=== PATIENT | female | born 1940 | race Caucasian/White ===

== ENCOUNTER 2019-10-03 18:42 | Observation (INO) | payer MEDICARE, OTHER ==
[~2019-10-03] VITALS: Ht 154.9 cm; Wt 63.5 kg
[2019-10-03] VITALS (12 sets, daily range): BP systolic 99–191; BP diastolic 43–73
[2019-10-03] MEDS ORDERED: RT-ALBUTEROL/IPRATROPIUM 3 ML (DUONEB) VIAL ONE (18:44)
--- NOTE | 2019-10-03 18:58 | ED Cough/URI ---
General Stated Complaint: COPD EXASPERATION Source: patient, family Exam Limitations: no limitations History of Present Illness Date Seen by Provider: Oct 03, 2019 Time Seen by Provider: 18:55 Initial Comments to ER with reports of shortness of breath. This began about 3 days ago and has gotten progressively worse. History of COPD,does not wear oxygen at home. Was seen at [facility] urgent care today, found to be audibly wheezy, tachypneic with a respiratory rate of 30s, was referred to the emergency room.she is brought to the ER by [id number] and son with whom she is currently living. Reportedly, her about 3 weeks ago and she has been living with them since. Normal PCP is in [place], [place]. Timing/Duration: constant, getting worse Severity/Quality: moderate Associated Symptoms: cough, shortness of breath, other Allergies and Home Medications Allergies Coded Allergies: No Known Drug Allergies (Unverified , 10/03/19) Patient Home Medication List Home Medication List Reviewed: Yes Review of Systems Review of Systems Constitutional: see HPI; No chills, No fever EENTM: see HPI Respiratory: no symptoms reported, see HPI, short of breath, wheezing Cardiovascular: no symptoms reported Genitourinary: no symptoms reported Musculoskeletal: no symptoms reported Skin: no symptoms reported Psychiatric/Neurological: No Symptoms Reported Physical Exam Vital Signs - First Documented 10/03/19 18:43 Temp 35.0 Pulse 83 Resp 18 B/P (MAP) 201/93 (129) Pulse Ox 98 O2 Delivery Nasal Cannula O2 Flow Rate 2.00 Capillary Refill : Height: '" Weight: lbs. oz. kg; BMI Method: General Appearance: WD/WN, mild distress, other (chronically ill, slight distress, speaks in short phrases but oxygen saturation 95% room air.cool to the touch but plenty alert. Her initial oral temperature was 91on 3 attempts, axillary temperature was unable to be obtained, rectal temperature was 93. She is a bit forgetful, I asked her what her date of is and she replies "40, I think". When asked where she lives she states "I don't know".) Eyes: Bilateral Eye Normal Inspection, Bilateral Eye PERRL, Bilateral Eye EOMI Neck: non-tender, full range of motion Respiratory: no respiratory distress, no accessory muscle use, respiratory distress, wheezing Gastrointestinal: normal bowel sounds, non tender, soft Neurologic/Psychiatric: alert Skin: normal color, warm/dry, other (there is some very slight erythema bilateral lower extremities that is symmetric associated with thickened scaly skin without open wounds.) Progress/Results/Core Measures Suspected Sepsis SIRS Temperature: Pulse: Respiratory Rate: Laboratory Tests 10/03/19 19:03: White Blood Count 6.5 Blood Pressure / Mean: Laboratory Tests 10/03/19 19:03: Creatinine 0.80, Platelet Count 174, Total Bilirubin 0.3 Results/Orders Lab Results Laboratory Tests Test 10/03/19 19:03 Range/Units White Blood Count 6.5 4.3-11.0 10^3/uL Red Blood Count 4.40 4.35-5.85 10^6/uL Hemoglobin 13.6 11.5-16.0 G/DL Hematocrit 42 35-52 % Mean Corpuscular Volume 94 80-99 FL Mean Corpuscular Hemoglobin 31 25-34 PG Mean Corpuscular Hemoglobin Concent 33 32-36 G/DL Red Cell Distribution Width 15.6 H 10.0-14.5 % Platelet Count 174 130-400 10^3/uL Mean Platelet Volume 10.6 H 7.4-10.4 FL Neutrophils (%) (Auto) 51 42-75 % Lymphocytes (%) (Auto) 24 12-44 % Monocytes (%) (Auto) 12 0-12 % Eosinophils (%) (Auto) 12 H 0-10 % Basophils (%) (Auto) 1 0-10 % Neutrophils # (Auto) 3.3 1.8-7.8 X 10^3 Lymphocytes # (Auto) 1.6 1.0-4.0 X 10^3 Monocytes # (Auto) 0.8 0.0-1.0 X 10^3 Eosinophils # (Auto) 0.8 H 0.0-0.3 10^3/uL Basophils # (Auto) 0.0 0.0-0.1 10^3/uL Blood Gas Puncture Site LEFT RADIAL Blood Gas Patient Temperature 98.6 Arterial Blood pH 7.33 *L 7.37-7.43 Arterial Blood Partial Pressure CO2 54 H 35-45 MMHG Arterial Blood Partial Pressure O2 123 H 79-93 MMHG Arterial Blood HCO3 28 H 23-27 MMOL/L Arterial Blood Total CO2 29.3 21.0-31.0 MMOL/L Arterial Blood Oxygen Saturation 99 94-100 % Arterial Blood Base Excess 2.3 -2.5-2.5 MMOL/L Willam Test YES-POS Blood Gas Ventilator Setting NO Blood Gas Inspired Oxygen 5L Sodium Level 138 135-145 MMOL/L Potassium Level 4.7 3.6-5.0 MMOL/L Chloride Level 102 98-107 MMOL/L Carbon Dioxide Level 23 21-32 MMOL/L Anion Gap 13 5-14 MMOL/L Blood Urea Nitrogen 27 H 7-18 MG/DL Creatinine 0.80 0.60-1.30 MG/DL Estimat Glomerular Filtration Rate > 60 BUN/Creatinine Ratio 34 Glucose Level 72 70-105 MG/DL Calcium Level 9.2 8.5-10.1 MG/DL Corrected Calcium 9.4 8.5-10.1 MG/DL Total Bilirubin 0.3 0.1-1.0 MG/DL Aspartate Amino Transf (AST/SGOT) 29 5-34 U/L Alanine Aminotransferase (ALT/SGPT) 20 0-55 U/L Alkaline Phosphatase 94 40-136 U/L Lactate Dehydrogenase 252 H 125-220 U/L C-Reactive Protein High Sensitivity 0.99 H 0.00-0.50 MG/DL B-Type Natriuretic Peptide 122.2 H <100.0 PG/ML Total Protein 8.4 H 6.4-8.2 GM/DL Albumin 3.7 3.2-4.5 GM/DL Procalcitonin 0.03 <0.10 NG/ML Thyroid Stimulating Hormone (TSH) 5.68 H 0.35-4.94 UIU/ML Free Thyroxine 1.02 0.70-1.48 NG/DL My Orders Orders - BASIA CHI DENTAL AMALGAM PROCESSOR Cbc With Automated Diff (10/03/19 18:52) Comprehensive Metabolic Panel (10/03/19 18:52) BNP (10/03/19 18:52) Arterial Blood Gas (10/03/19 18:52) Chest 1 View, Ap/Pa Only (10/03/19 18:52) Ed Iv/Invasive Line Start (10/03/19 18:52) Thyroid Stimulating Hormone (10/03/19 19:08) Free T4 (Free Thyroxine) (10/03/19 19:08) Albuterol/Ipra Inhalation Soln (Duoneb I (10/03/19 19:15) Albuterol Pre-Mix Nebs (Rt) (Proventil (10/03/19 19:15) Svn Small Volume Nebulizer (10/03/19 19:12) Svn Small Volume Nebulizer (10/03/19 19:12) Methylprednisolone Sod Succ (Solu-Medrol (10/03/19 19:15) Hs C Reactive Protein (10/03/19 19:15) Procalcitonin (Pct) (10/03/19 19:15) LDH (10/03/19 19:15) Medications Given in ED Current Medications Medications Dose Ordered Sig/Valdemar Route Start Time Stop Time Status Last Admin Dose Admin Albuterol Sulfate 5 mg ONCE ONCE INH 10/03/19 19:15 10/03/19 19:16 DC 10/03/19 19:21 5 MG Albuterol/ Ipratropium 3 ml ONCE ONCE INH 10/03/19 19:15 10/03/19 19:16 DC 10/03/19 19:00 3 ML Methylprednisolone Sodium Succinate 125 mg ONCE ONCE IVP 10/03/19 19:15 10/03/19 19:16 DC 10/03/19 19:21 125 MG Vital Signs/I&O 10/03/19 10/03/19 10/03/19 10/03/19 18:43 19:00 19:15 19:21 Temp 35.0 Pulse 83 70 72 Resp 18 26 24 B/P (MAP) 201/93 (129) 191/73 (112) 177/58 (97) Pulse Ox 98 98 98 99 O2 Delivery Nasal Cannula Nasal Cannula Nasal Cannula Nasal Cannula O2 Flow Rate 2.00 2.00 2.00 2.00 Capillary Refill : Diagnostic Imaging Diagonstic Imaging: Xray Comments NAME: JACKI MARIO Vashti MED REC#: [id number] PT STATUS: REG ER : 1940 PHYSICIAN: BASIA CHI APRN ADMIT DATE: 10/03/19/ER Signed Date of Exam:10/03/19 CHEST 1 VIEW, AP/PA ONLY EXAMINATION: Chest 1 view HISTORY: Chronic cough COMPARISON: None available. FINDINGS: The lungs are clear without edema or pneumonia. No pleural effusion or pneumothorax. Heart size is normal. IMPRESSION: 1. Clear lungs. Dictated by: Dictated on workstation # [id number] Dict: 10/03/191920 Trans: 10/03/191921 [facility] [phone] Interpreted by: ALICE THOMASON MD Electronically signed by: ALICE THOMASON MD 10/03/191921 Departure Communication (Admissions) Time/Spoke to Admitting Phy: 20:04 0-feeling a bit better after DuoNeb and 2 albuterol treatments, still pretty wheezing, work of breathing is improved but overall still I beyond what I would imagine normal is for her.spoke with Dr. Whaley, we'll admit COPD exacerbation. We will not swab for COVID-19 because she does not have a fever and shedoes have an alternate more likely diagnosis which is an exacerbation of her COPD. I had a lengthy discussion with her daughter Senait Vargas phone number [phone] who is a nurse as well as her uuhukgmx-[id number]-bwy LUCIAN phone number [phone]. States she has a history of chronic kidney disease, type 2 diabetes but not on any medications for this, suspected COPD but not diagnosed. 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 She had a bad history of going through her albuterol inhaler excessively, she would run through a 90 day supply in just a few days and would then use her 's supply. 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 Primary care doctor is Dr. Chacko from [place].her zykpcugi-qb-run Chris confirmed that she intends to take the patient home with her tomorrow on discharge. Patient's daughter states that she has a small bedsore on her bottom because she sleeps in a chair and refuses to sleep in bed, she has some swelling in both lower extremities because she sleeps in the chair and refused to put her feet up. Impression Primary Impression: COPD exacerbation Additional Impression: Hypothermia Disposition: ADMITTED INPATIENT Condition: Stable Admissions Decision to Admit Reason: Admit from ER (General) Decision to Admit/Date: Oct 03, 2019 Time/Decision to Admit Time: 19:15 BASIA CHI DENTAL AMALGAM PROCESSOR Oct 03, 2019 18:58
[2019-10-03 19:13] LABS: BASOPHILS % (AUTO) 1 % (0-10); EOSINOPHILS # (AUTO) 0.8 10^3/uL (0.0-0.3); EOSINOPHILS % (AUTO) 12 % (0-10); HEMATOCRIT 42 % (35-52); HEMOGLOBIN 13.6 G/DL (11.5-16.0); LYMPHOCYTES # (AUTO) 1.6 X 10^3 (1.0-4.0); LYMPHOCYTES % (AUTO) 24 % (12-44); MEAN CORPUSCULAR HEMOGLOBIN 31 PG (25-34); MEAN CORPUSCULAR HGB CONC 33 G/DL (32-36); MEAN CORPUSCULAR VOLUME 94 FL (80-99); MEAN PLATELET VOLUME 10.6 FL (7.4-10.4); MONOCYTES # (AUTO) 0.8 X 10^3 (0.0-1.0); MONOCYTES % (AUTO) 12 % (0-12); NEUTROPHILS # (AUTO) 3.3 X 10^3 (1.8-7.8); NEUTROPHILS % (AUTO) 51 % (42-75); PLATELET COUNT 174 10^3/uL (130-400); RED CELL DISTRIBUTION WIDTH 15.6 % (10.0-14.5); WHITE BLOOD COUNT 6.5 10^3/uL (4.3-11.0)
[2019-10-03 19:14] LABS: ABG BASE EXCESS 2.3 MMOL/L (-2.5-2.5); ABG OXYGEN SATURATION 99 % (94-100); ABG PCO2 54 MMHG (35-45); ABG PO2 123 MMHG (79-93); ABG TCO2 29.3 MMOL/L (21.0-31.0)
[2019-10-03] MEDS ORDERED: RT-ALBUTEROL SULF 2.5 MG/3 ML PRE-MIX VIAL INH ONE (19:15)
[2019-10-03] MEDS ORDERED: methylPREDNISolone 125 MG (Solu-MEDROL) VIAL IVP ONE (19:15)
[2019-10-03] MEDS ORDERED: RT-ALBUTEROL/IPRATROPIUM 3 ML (DUONEB) VIAL INH ONE (19:15)
[2019-10-03 19:18] LABS: ABG PH 7.33 (7.37-7.43); ALLENS TEST YES-POS; INSPIRED O2 5L; PATIENT TEMP 98.6; VENTILATOR NO
--- NOTE | 2019-10-03 19:23 | Diagnostic Imaging Report ---
EXAMINATION: Chest 1 view HISTORY: Chronic cough COMPARISON: None available. FINDINGS: The lungs are clear without edema or pneumonia. No pleural effusion or pneumothorax. Heart size is normal. IMPRESSION: 1. Clear lungs. Dictated by: Dictated on workstation # [id number]
[2019-10-03 19:37] LABS: ALANINE AMINOTRANSFERASE 20 U/L (0-55); ALBUMIN 3.7 GM/DL (3.2-4.5); ALKALINE PHOSPHATASE 94 U/L (40-136); BILIRUBIN,TOTAL 0.3 MG/DL (0.1-1.0); BUN/CREATININE RATIO 34; CALCIUM 9.2 MG/DL (8.5-10.1); CARBON DIOXIDE 23 MMOL/L (21-32); CHLORIDE 102 MMOL/L (98-107); GFR ESTIMATED > 60; GLUCOSE 72 MG/DL (70-105); POTASSIUM 4.7 MMOL/L (3.6-5.0); SODIUM 138 MMOL/L (135-145); TOTAL PROTEIN 8.4 GM/DL (6.4-8.2)
[2019-10-03 19:59] LABS: FREE T4 (FREE THYROXINE) 1.02 NG/DL (0.70-1.48)
--- NOTE | 2019-10-03 20:13 | NUR ---
floor rn unable to take report at this time.
[2019-10-03] MEDS ORDERED: AZITHROMYCIN INJECTION 500 MG in NS (IVPB) 250 ML IV SCH (21:15)
[2019-10-03] MEDS ORDERED: cefTRIAXone FOR IV USE 1,000 MG in WATER (STERILE) FOR INJECTION 10 ML IV SCH (21:15)
[2019-10-03] MEDS ORDERED: ENOXAPARIN 40 MG/0.4 ML (LOVENOX) SYR SC SCH (21:45)
[2019-10-03] MEDS ORDERED: ONDANSETRON 4 MG/2 ML (SDV) Z0FRAN IV PRN (21:45)
[2019-10-03] MEDS ORDERED: amLODIPine 5 MG (NORVASC) TAB PO PRN (21:45)
[2019-10-03] MEDS: RT-ALBUTEROL/IPRATROPIUM 3 ML (DUONEB) VIAL INH SCH (22:32)
--- NOTE | 2019-10-03 22:45 | NUR ---
PT ARRIVED ON FLOOR AT THIS TIME, ACCOMPANIED BY STAFF. PT PERSONAL BELONGINGS BROUGHT IN ROOM, INCLUDING CANE AND CLOTHING. PT ASSESSED AT THIS TIME, AGREE WITH PREVIOUS ASSESSMENT. PT INTRODUCED TO SURROUNDINGS, CALL LIGHT WITHIN REACH, WILL CONTINUE TO MONITOR
[2019-10-04 00:47] VITALS: BP 150/82
[2019-10-04] MEDS: RT-ALBUTEROL/IPRATROPIUM 3 ML (DUONEB) VIAL INH SCH ×3 (02:20→10:27)
[2019-10-04 04:00] VITALS: BP 154/76
[2019-10-04] MEDS: methylPREDNISolone 40 MG/ML (Solu-MEDROL) VIAL IV SCH ×2 (04:40→11:53)
[2019-10-04 05:13] VITALS: BP 154/76
[2019-10-04 05:44] LABS: BASOPHILS % (AUTO) 0 % (0-10); EOSINOPHILS % (AUTO) 0 % (0-10); HEMATOCRIT 36 % (35-52); HEMOGLOBIN 11.6 G/DL (11.5-16.0); LYMPHOCYTES # (AUTO) 0.4 X 10^3 (1.0-4.0); LYMPHOCYTES % (AUTO) 7 % (12-44); MEAN CORPUSCULAR HEMOGLOBIN 30 PG (25-34); MEAN CORPUSCULAR HGB CONC 32 G/DL (32-36); MEAN CORPUSCULAR VOLUME 95 FL (80-99); MEAN PLATELET VOLUME 11.1 FL (7.4-10.4); MONOCYTES % (AUTO) 0 % (0-12); NEUTROPHILS # (AUTO) 5.4 X 10^3 (1.8-7.8); NEUTROPHILS % (AUTO) 92 % (42-75); PLATELET COUNT 165 10^3/uL (130-400); RED CELL DISTRIBUTION WIDTH 15.5 % (10.0-14.5); WHITE BLOOD COUNT 5.8 10^3/uL (4.3-11.0)
[2019-10-04 06:03] LABS: ALBUMIN 3.2 GM/DL (3.2-4.5)
[2019-10-04 06:06] LABS: TOTAL PROTEIN 7.3 GM/DL (6.4-8.2)
[2019-10-04 06:08] LABS: BILIRUBIN,TOTAL 0.1 MG/DL (0.1-1.0)
[2019-10-04 08:00] VITALS: BP_SYST 117; BP_SYST 168; BP_DIAS 56; BP_DIAS 89
[2019-10-04] MEDS ORDERED: hydrALAZINE (APESOLINE) 20 MG/ML VIAL IV PRN (08:15)
[2019-10-04] MEDS ORDERED: hydrALAZINE (APRESOLINE) 25 MG TAB PO PRN (08:15)
[2019-10-04] MEDS ORDERED: PRED10TA22 PO (10:34)
[2019-10-04] MEDS ORDERED: IPRA3AMP31 IH (10:34)
[2019-10-04] MEDS: inSUlin ASPART (NovoLOG) 1 UNIT/0.01 ML (CHARGE PER UNIT) SC SCH ×2 (11:06→11:08)
--- NOTE | 2019-10-04 11:30 | NUR ---
RESPIRATORY THERAPY WAS NOTIFIED OF HOME O2 STUDY THAT WAS ORDERED. R.TEleazar WAS CONCERNED THAT THE PATIENT HAD DEMENTIA AND WOULDN'T BE ABLE TO WALK. THIS RN REASSURED HIM THAT SHE IS ABLE TO COMPREHEND INFORMATION AND FOLLOW DIRECTIONS AND IS ABLE TO WALK. SHE USES A CANE AT HOME. THIS RN ASKED ROMARIO SANDOVAL TO HELP R.TEleazar WHEN HE WALKED THE PATIENT. Sarath RAINES TOLD LORI THAT HE DIDN'T NEED TO WALK THE PATIENT BECAUSE SHE ALREADY QUALIFIED FOR OXYGEN. LORI RELAYED THIS INFORMATION TO THIS RN. THIS RN WENT IN THE PATIENT'S ROOM TO CHECK THE OXYGEN LEVEL THAT RESPIRATORY THERAPY PUT THE PATIENT ON. THE PATIENT WAS NOT WEARING OXYGEN. THE WALL OXYGEN WAS NOT TURNED ON AND THERE WAS NO NASAL CANULA IN THE ROOM. PROJECT PRODUCTION ENGINEER RN FELICIA REPORTED THAT THE PATIENT WAS ON ROOM AIR, AND THE PATIENT HAS BEEN ON ROOM AIR SINCE THE BEGINNING OF THIS RN'S SHIFT. PATIENT'S O2 SAT HAS BEEN RANGING FROM 91-94% WHILE LAYING IN BED. PATIENT WALKED IN THE ELLIS WITH ROMARIO SANDOVAL AND THIS RN. O2 SAT CLIMBED FROM 90% TO 94%. THE PATIENT WAS CONSISTENTLY AT 94% OA SAT WHILE AMBULATING. THIS RN CALLED THE RESPIRATORY THERAPIST YANNA TO REPORT THE THE RESULTS OF OUR AMBULATORY OXYGEN STUDY. Sarath RAINES CAME TO THE FLOOR TO WITNESS THE END OF THE PATIENT'S HOME O2 AMBULATORY STUDY.
--- NOTE | 2019-10-04 11:49 | NUR ---
PT SATS CLIMBED WITH EXERCISE, SHE WALKED APPROXIMATLY 300 FT WITHOUT SUPPLEMENTAL OXYGEN AND WITH A HR OF 140 AND O2 SATS OF 94%. AT REST IN BED SATS ARE 87% WITH A HR OF 101. Addendum: 10/04/19 at 1150 by SARAH BUSTAMANTE RT Amended: Links added.
[2019-10-04 12:00] VITALS: BP 124/56
[2019-10-04 12:35] VITALS: BP 124/56
== END 2019-10-04 12:35 | disposition home or self-care (01) ==
LOC: EDUNIT# 18:49 → ER 19:01 → ICU 20:39 → 4TH 23:10
PROVIDERS: ADMIT Internal Medicine; ATTEND Internal Medicine
DX: J44.1 Chronic obstructive pulmonary disease with (acute) exacerbation (principal); T68.XXXA Hypothermia, initial encounter; E11.22 Type 2 diabetes mellitus with diabetic chronic kidney disease; N18.9 Chronic kidney disease, unspecified
CPT/HCPCS: 36415; 71045; 80053; 82805; 82962; 83615; 83880; 84145; 84439; 84443; 85025; 86141; 94640; 94760; 94761

== ENCOUNTER 2019-10-31 10:44 | Emergency (ER) | payer MEDICARE ==
[~2019-10-31] VITALS: Ht 152 cm; Wt 45.3 kg
[~2019-10-31 10:44] MED LIST: IPRA3AMP31 IH; PRED10TA22 PO
--- OUTSIDE RECORDS SUMMARY | 2019-10-31 10:51 | XMS REPORT | Continuity of Care Document ---
Author Organization Unknown Address Unknown Phone Unavailable Allergies Active Description Code Type Severity Reaction Onset Reported/Identified Relationship to Patient Clinical Status Yes No Known Drug Allergies [id number] Drug Allergy Unknown N/A 10/03/2019 Medications There is no data. Problems Date Dx Coded Attending Type Code Diagnosis Diagnosed By 10/04/2019 ALBERT GOMES MD, Ot E11. 22 TYPE 2 DIABETES MELLITUS W DIABETIC PROCESSING MGR 10/04/2019 ALBERT GOMES MD, Ot J44. 1 CHRONIC OBSTRUCTIVE PULMONARY DISEASE W 10/04/2019 ALBERT GOMES MD Ot N18. 9 CHRONIC KIDNEY DISEASE, UNSPECIFIED 10/04/2019 ALBERT GOMES MD Ot T68.XXXA HYPOTHERMIA, INITIAL ENCOUNTER 10/21/2019 ALBERT GOMES MD Ot E11. 22 TYPE 2 DIABETES MELLITUS W DIABETIC PROCESSING MGR 10/21/2019 ALBERT GOMES MD Ot J44. 1 CHRONIC OBSTRUCTIVE PULMONARY DISEASE W 10/21/2019 ALBERT GOMES MD Ot N18. 9 CHRONIC KIDNEY DISEASE, UNSPECIFIED 10/21/2019 ALBERT GOMES MD Ot T68.XXXA HYPOTHERMIA, INITIAL ENCOUNTER 10/21/2019 ALBERT GOMES MD Ot E11. 22 TYPE 2 DIABETES MELLITUS W DIABETIC PROCESSING MGR 10/21/2019 ALBERT GOMES MD Ot J44. 1 CHRONIC OBSTRUCTIVE PULMONARY DISEASE W 10/21/2019 ALBERT GOMES MD Ot N18. 9 CHRONIC KIDNEY DISEASE, UNSPECIFIED 10/21/2019 ALBERT GOMES MD Ot T68.XXXA HYPOTHERMIA, INITIAL ENCOUNTER 10/21/2019 ALBERT GOMES MD Ot E11. 22 TYPE 2 DIABETES MELLITUS W DIABETIC PROCESSING MGR 10/21/2019 ALBERT GOMES MD Ot J44. 1 CHRONIC OBSTRUCTIVE PULMONARY DISEASE W 10/21/2019 ALBERT GOMES MD Ot N18. 9 CHRONIC KIDNEY DISEASE, UNSPECIFIED 10/21/2019 ALBERT GOMES MD Ot T68.XXXA HYPOTHERMIA, INITIAL ENCOUNTER Procedures There is no data. Results Test Result Range Complete blood count (CBC) with automate d white blood cell (WBC) differential - 10/03/19 19:03 Blood leukocytes automated count (number/volume) 6.5 10*3/uL 4.3-11.0 Blood erythrocytes automated count (number/volume) 4.40 10*6/uL 4.35-5.85 Venous blood hemoglobin measurement (mass/volume) 13.6 g/dL 11.5-16.0 Blood hematocrit (volume fraction) 42 % 35-52 Automated erythrocyte mean corpuscular volume 94 [ foz_us] 80-99 Automated erythrocyte mean corpuscular h emoglobin (mass per erythrocyte) 31 pg 25-34 Automated erythrocyte mean corpuscular h emoglobin concentration measurement (mass/volume) 33 g/dL 32-36 Automated erythrocyte distribution width ratio 15. 6 % 10.0- 14.5 Automated blood platelet count (count/volume) 174 10*3/uL 130-400 Automated blood platelet mean volume measurement 10.6 [foz_us] 7.4-10.4 Automated blood neutrophils/100 leukocytes 51 % 42-75 Automated blood lymphocytes/100 leukocytes 24 % 12-44 Blood monocytes/100 leukocytes 12 % 0-12 Automated blood eosinophils/100 leukocytes 12 % 0-10 Automated blood basophils/100 leukocytes 1 % 0-10 Blood neutrophils automated count (number/volume) 3.3 10*3 1.8-7.8 Blood lymphocytes automated count (number/volume) 1.6 10*3 1.0-4.0 Blood monocytes automated count (number/volume) 0. 8 10*3 0.0-1.0 Automated eosinophil count 0.8 10*3/uL 0 .0-0.3 Automated blood basophil count (count/volume) 0.0 10*3/uL 0.0-0.1 Arterial blood gas measurement - 0 19:03 Blood pCO2 54 mm[Hg] 35-45 Blood pO2 123 mm[Hg] 79-93 Arterial blood bicarbonate measurement (moles/volume) 28 mmol/L 23-27 Arterial blood base excess by calculation 2.3 mmol /L -2.5-2.5 Arterial blood oxygen saturation measurement 99 % 94-100 * Inhaled oxygen flow rate 5L NRG Arterial blood pH measurement with patient temperature correction 7.33 7.37-7.43 Arterial blood carbon dioxide, total measurement (mole s/volume) 29.3 mmol/L 21.0-31.0 Body site LEFT RADIAL NRG Assessment of wrist artery patency prior to arterial p uncture YES-POS NRG Setting of ventilation mode NO NR G Measurement of body temperature 98.6 NRG Serum ragweed IgE antibody assay - 10/02 19:03 Serum ragweed IgE antibody assay 252 U/L 125-220 PROCALCITONIN (PCT) - 10/03/19 19:03 PROCALCITONIN (PCT) 0.03 ng/mL <0.10 Comprehensive metabolic panel - 10/03/19 19:03 Serum or plasma sodium measurement (moles/volume) 138 mmol/L 135-145 Serum or plasma potassium measurement (moles/volume) 4.7 mmol/L 3.6-5.0 Serum or plasma chloride measurement (moles/volume) 102 mmol/L 98-107 Carbon dioxide 23 mmol/L 21-32 Serum or plasma anion gap determination (moles/volume) 13 mmol/L 5-14 Serum or plasma urea nitrogen measurement (mass/volume ) 27 mg/dL 7-18 Serum or plasma creatinine measurement (mass/volume) 0.80 mg/dL 0.60-1.30 Serum or plasma urea nitrogen/creatinine mass ratio 34 NRG Serum or plasma creatinine measurement w ith calculation of estimated glomerular filtration rate > NRG Serum or plasma glucose measurement (mass/volume) 72 mg/dL 70-105 Serum or plasma calcium measurement (mass/volume) 9.2 mg/dL 8.5-10.1 Serum or plasma total bilirubin measurement (mass/volu me) 0.3 mg/dL 0.1-1.0 Serum or plasma alkaline phosphatase francisco j surement (enzymatic activity/volume) 94 U/L 40-136 Serum or plasma aspartate aminotransfera se measurement (enzymatic activity/volume) 29 U/L 5-34 Serum or plasma alanine aminotransferase measurement (enzymatic activity/volume) 20 U/L 0-55 Serum or plasma protein measurement (mass/volume) 8.4 g/dL 6.4-8.2 Serum or plasma albumin measurement (mass/volume) 3.7 g/dL 3.2-4.5 CALCIUM CORRECTED 9.4 mg/dL 8.5-10.1 Serum or plasma lithium measurement (mol es/volume) - 10/03/19 19:03 BNP PT 122.2 pg/mL <100.0 THYROID STIMULATING HORMONE - 10/03/19 1 9:03 THYROID STIMULATING HORMONE 5.68 u[iU]/mL 0.35-4.94 Serum or plasma thyroxine (T4) free chanelle urement (mass/volume) - 10/03/19 19:03 Serum or plasma thyroxine (T4) free measurement (mass/ volume) 1.02 ng/dL 0.70-1.48 Serum or plasma C reactive protein measu rement (mass/volume) - 10/03/19 19:03 Serum or plasma C reactive protein measurement (mass/v olume) 0.99 mg/dL 0.00-0.50 Complete blood count (CBC) with automate d white blood cell (WBC) differential - 10/04/19 04:37 Blood leukocytes automated count (number/volume) 5.8 10*3/uL 4.3-11.0 Blood erythrocytes automated count (number/volume) 3.82 10*6/uL 4.35-5.85 Venous blood hemoglobin measurement (mass/volume) 11.6 g/dL 11.5-16.0 Blood hematocrit (volume fraction) 36 % 35-52 Automated erythrocyte mean corpuscular volume 95 [ foz_us] 80-99 Automated erythrocyte mean corpuscular h emoglobin (mass per erythrocyte) 30 pg 25-34 Automated erythrocyte mean corpuscular h emoglobin concentration measurement (mass/volume) 32 g/dL 32-36 Automated erythrocyte distribution width ratio 15. 5 % 10.0- 14.5 Automated blood platelet count (count/volume) 165 10*3/uL 130-400 Automated blood platelet mean volume measurement 11.1 [foz_us] 7.4-10.4 Automated blood neutrophils/100 leukocytes 92 % 42-75 Automated blood lymphocytes/100 leukocytes 7 % 12-44 Blood monocytes/100 leukocytes 0 % 0-12 Automated blood eosinophils/100 leukocytes 0 % 0-10 Automated blood basophils/100 leukocytes 0 % 0-10 Blood neutrophils automated count (number/volume) 5.4 10*3 1.8-7.8 Blood lymphocytes automated count (number/volume) 0.4 10*3 1.0-4.0 Blood monocytes automated count (number/volume) 0. 0 10*3 0.0-1.0 Automated eosinophil count 0.0 10*3/uL 0 .0-0.3 Automated blood basophil count (count/volume) 0.0 10*3/uL 0.0-0.1 Comprehensive metabolic panel - 10/04/19 04:37 Serum or plasma sodium measurement (moles/volume) 140 mmol/L 135-145 Serum or plasma potassium measurement (moles/volume) 4.0 mmol/L 3.6-5.0 Serum or plasma chloride measurement (moles/volume) 105 mmol/L 98-107 Carbon dioxide 18 mmol/L 21-32 Serum or plasma anion gap determination (moles/volume) 17 mmol/L 5-14 Serum or plasma urea nitrogen measurement (mass/volume ) 32 mg/dL 7-18 Serum or plasma creatinine measurement (mass/volume) 1.00 mg/dL 0.60-1.30 Serum or plasma urea nitrogen/creatinine mass ratio 32 NRG Serum or plasma creatinine measurement w ith calculation of estimated glomerular filtration rate 53 NRG Serum or plasma glucose measurement (mass/volume) 159 mg/dL 70-105 Serum or plasma calcium measurement (mass/volume) 9.0 mg/dL 8.5-10.1 Serum or plasma total bilirubin measurement (mass/volu me) 0.1 mg/dL 0.1-1.0 Serum or plasma alkaline phosphatase francisco j surement (enzymatic activity/volume) 81 U/L 40-136 Serum or plasma aspartate aminotransfera se measurement (enzymatic activity/volume) 22 U/L 5-34 Serum or plasma alanine aminotransferase measurement (enzymatic activity/volume) 18 U/L 0-55 Serum or plasma protein measurement (mass/volume) 7.3 g/dL 6.4-8.2 Serum or plasma albumin measurement (mass/volume) 3.2 g/dL 3.2-4.5 CALCIUM CORRECTED 9.6 mg/dL 8.5-10.1 Capillary blood glucose measurement by g lucometer (mass/volume) - 10/04/19 11:00 Capillary blood glucose measurement by glucometer (mas s/volume) 178 mg/dL 70-110 Encounters ACCT No. Visit Date/Time Discharge Status Pt. Type Provider Facility Loc./Unit Complaint [id number] 10/03/2019 18:20:00 10/03/2019 23:59: 59 CLS Outpatient [facility] [id number] 10/03/2019 21:15:00 020 12:35:00 DIS Inpatient MIREYA DOBSON, ALBERT Gates [facility] COPD EXACERBATION,[facility]
--- NOTE | 2019-10-31 11:03 | ED General ---
General Stated Complaint: BURNING WHEN URINATION Source of Information: Patient Exam Limitations: No Limitations History of Present Illness Date Seen by Provider: October 31, 2019 Time Seen by Provider: 11:01 Initial Comments To ER with reports of burning on urination for a couple days. No nausea no vomiting no fevers. Questionable chills. Also reports low back pain. Timing/Duration: 2-3 Days Severity: Moderate Associated Systoms: No Cough; Fever/Chills; No Nausea/Vomiting Allergies and Home Medications Allergies Coded Allergies: No Known Drug Allergies (Unverified , 10/03/19) Home Medications Ipratropium/Albuterol Sulfate 3 Ml Ampul.neb, 3 ML IH Q6H PRN for SHORTNESS OF BREATH Prescribed by: ALBERT GOMES on 10/04/19 1034 Prednisone 10 Mg Tab.ds.pk, 10 MG PO DAILY Take 6 tabs(60mg)daily,decrease by 1 tab(10mg)every other day. Prescribed by: ALBERT GOMES on 10/04/19 1034 Temazepam 7.5 Mg Capsule, 7.5 MG PO HS PRN for INSOMNIA Prescribed by: BASIA CHI on 10/31/19 1204 Patient Home Medication List Home Medication List Reviewed: Yes Review of Systems Review of Systems Constitutional: see HPI, chills; No fever EENTM: see HPI Respiratory: no symptoms reported Cardiovascular: no symptoms reported Genitourinary: see HPI, dysuria Musculoskeletal: no symptoms reported Skin: no symptoms reported Psychiatric/Neurological: No Symptoms Reported Hematologic/Lymphatic: No Symptoms Reported Past Yluohcn-Kjfqoc-Gzivqf Hx Patient Social History Type Used: Cigarettes Recent Foreign Travel: No Contact w/Someone Who Travel: No Recent Hopitalizations: No (pt poor historian) Immunizations Up To Date Tetanus Booster (TDap): Unknown Seasonal Allergies Seasonal Allergies: No Past Medical History Surgeries: Yes Orthopedic Respiratory: Yes COPD Cardiac: No Neurological: No Genitourinary: No Gastrointestinal: No Musculoskeletal: No Endocrine: No HEENT: No Cancer: No Psychosocial: No Integumentary: No Blood Disorders: No Physical Exam Vital Signs Vital Signs - First Documented 10/31/19 10:50 Temp 36.4 Pulse 72 Resp 14 B/P (MAP) 115/89 (98) Pulse Ox 96 O2 Delivery Room Air Capillary Refill : Height, Weight, BMI Height: '" Weight: lbs. oz. kg; 26.46 BMI Method: General Appearance: No Apparent Distress, WD/WN Eyes: Bilateral Eye Normal Inspection, Bilateral Eye PERRL HEENT: PERRL/EOMI, Normal ENT Inspection Neck: Full Range of Motion, Normal Inspection Respiratory: Normal Breath Sounds, No Accessory Muscle Use, No Respiratory Distress Cardiovascular: Regular Rate, Rhythm, Normal Peripheral Pulses Gastrointestinal: Normal Bowel Sounds, Non Tender, Soft Extremity: Normal Capillary Refill, Normal Inspection Neurologic/Psychiatric: Alert, Other (pleasantly demented.) Skin: Normal Color, Warm/Dry Progress/Results/Core Measures Suspected Sepsis SIRS Temperature: Pulse: Respiratory Rate: Laboratory Tests 10/31/19 11:05: White Blood Count 8.3 Blood Pressure / Mean: Laboratory Tests 10/31/19 11:05: Creatinine 0.94, Platelet Count 193, Total Bilirubin 0.6 Results/Orders Lab Results Laboratory Tests Test 10/31/19 11:05 10/31/19 11:30 Range/Units White Blood Count 8.3 4.3-11.0 10^3/uL Red Blood Count 3.70 L 4.35-5.85 10^6/uL Hemoglobin 11.6 11.5-16.0 G/DL Hematocrit 35 35-52 % Mean Corpuscular Volume 95 80-99 FL Mean Corpuscular Hemoglobin 31 25-34 PG Mean Corpuscular Hemoglobin Concent 33 32-36 G/DL Red Cell Distribution Width 15.0 H 10.0-14.5 % Platelet Count 193 130-400 10^3/uL Mean Platelet Volume 10.2 7.4-10.4 FL Neutrophils (%) (Auto) 65 42-75 % Lymphocytes (%) (Auto) 19 12-44 % Monocytes (%) (Auto) 11 0-12 % Eosinophils (%) (Auto) 4 0-10 % Basophils (%) (Auto) 0 0-10 % Neutrophils # (Auto) 5.4 1.8-7.8 X 10^3 Lymphocytes # (Auto) 1.6 1.0-4.0 X 10^3 Monocytes # (Auto) 0.9 0.0-1.0 X 10^3 Eosinophils # (Auto) 0.4 H 0.0-0.3 10^3/uL Basophils # (Auto) 0.0 0.0-0.1 10^3/uL Sodium Level 137 135-145 MMOL/L Potassium Level 4.2 3.6-5.0 MMOL/L Chloride Level 100 98-107 MMOL/L Carbon Dioxide Level 26 21-32 MMOL/L Anion Gap 11 5-14 MMOL/L Blood Urea Nitrogen 19 H 7-18 MG/DL Creatinine 0.94 0.60-1.30 MG/DL Estimat Glomerular Filtration Rate 57 BUN/Creatinine Ratio 20 Glucose Level 108 H 70-105 MG/DL Calcium Level 9.2 8.5-10.1 MG/DL Corrected Calcium 9.4 8.5-10.1 MG/DL Total Bilirubin 0.6 0.1-1.0 MG/DL Aspartate Amino Transf (AST/SGOT) 21 5-34 U/L Alanine Aminotransferase (ALT/SGPT) 13 0-55 U/L Alkaline Phosphatase 78 40-136 U/L Total Protein 8.1 6.4-8.2 GM/DL Albumin 3.8 3.2-4.5 GM/DL Urine Color YELLOW Urine Clarity CLEAR Urine pH 7.5 5-9 Urine Specific [place] 1.010 L 1.016-1.022 Urine Protein NEGATIVE NEGATIVE Urine Glucose (UA) NEGATIVE NEGATIVE Urine Ketones NEGATIVE NEGATIVE Urine Nitrite NEGATIVE NEGATIVE Urine Bilirubin NEGATIVE NEGATIVE Urine Urobilinogen 0.2 < = 1.0 MG/DL Urine Leukocyte Esterase NEGATIVE NEGATIVE Urine RBC (Auto) NEGATIVE NEGATIVE Urine RBC NONE /HPF Urine WBC NONE /HPF Urine Squamous Epithelial Cells RARE /HPF Urine Crystals NONE /LPF Urine Bacteria NEGATIVE /HPF Urine Casts NONE /LPF Urine Mucus NEGATIVE /LPF Urine Culture Indicated NO My Orders Orders - BASIA CHI APRN Ua Culture If Indicated (10/31/19 10:49) Cbc With Automated Diff (10/31/19 11:00) Comprehensive Metabolic Panel (10/31/19 11:00) Ct Abdomen/Pelvis Wo (10/31/19 11:54) Vital Signs/I&O Capillary Refill : Diagnostic Imaging Diagonstic Imaging: CT Comments NAME: JACKI MARIO MED REC#: [id number] PT STATUS: REG ER : 1940 PHYSICIAN: BASIA CHI APRN ADMIT DATE: 10/31/19/ER Draft Date of Exam:10/31/19 CT ABDOMEN/PELVIS WO PROCEDURE: CT abdomen and pelvis without contrast. TECHNIQUE: Multiple contiguous axial images were obtained through the abdomen and pelvis without the use of intravenous contrast. Auto Exposure Controls were utilized during the CT exam to meet ALARA standards for radiation dose reduction. INDICATION: Dysuria, lower back pain. COMPARISON: None FINDINGS: Lung bases are clear. The gallbladder, liver, spleen, pancreas, adrenal glands and kidneys are unremarkable. There is mild atherosclerosis of the abdominal aorta without aneurysm. There is no hydronephrosis or renal calculi. Visualized distal ureters and urinary bladder are unremarkable. The uterus is surgically absent. There is mild constipation throughout the colon without overt obstruction. Small bowel normal. Osseous structures are age-appropriate. IMPRESSION: 1. Mild constipation without bowel obstruction. 2. No renal calculi or hydronephrosis. 3. Atherosclerosis of abdominal aorta without evidence of aneurysm. Dictated on workstation # [id number] Dict: 10/31/19 1215 Trans: 10/31/19 1227 [facility] [id number] Interpreted by: HARVEY NAVA Electronically signed by: Departure Communication (Admissions) Daughter also reported that patient has been awake for over 24 hours. Patient lives at home with her daughter. Daughter is an RN. Impression Primary Impression: Dementia Disposition: HOME, SELF-CARE Condition: Stable Departure-Patient Inst. Decision time for Depature: 12:01 Referrals: Larry REYNA DO (PCP/Family) Primary Care Physician Patient Instructions: Dementia (DC) Scripts Temazepam (Restoril) 7.5 Mg Capsule 7.5 MG PO HS PRN for INSOMNIA, #10 CAP Prov: BASIA CHI APRN 10/31/19 BASIA CHI APRN October 31, 2019 11:02
[2019-10-31 11:18] LABS: BASOPHILS % (AUTO) 0 % (0-10); EOSINOPHILS # (AUTO) 0.4 10^3/uL (0.0-0.3); EOSINOPHILS % (AUTO) 4 % (0-10); HEMATOCRIT 35 % (35-52); HEMOGLOBIN 11.6 G/DL (11.5-16.0); LYMPHOCYTES # (AUTO) 1.6 X 10^3 (1.0-4.0); LYMPHOCYTES % (AUTO) 19 % (12-44); MEAN CORPUSCULAR HEMOGLOBIN 31 PG (25-34); MEAN CORPUSCULAR HGB CONC 33 G/DL (32-36); MEAN CORPUSCULAR VOLUME 95 FL (80-99); MEAN PLATELET VOLUME 10.2 FL (7.4-10.4); MONOCYTES # (AUTO) 0.9 X 10^3 (0.0-1.0); MONOCYTES % (AUTO) 11 % (0-12); NEUTROPHILS # (AUTO) 5.4 X 10^3 (1.8-7.8); NEUTROPHILS % (AUTO) 65 % (42-75); PLATELET COUNT 193 10^3/uL (130-400); WHITE BLOOD COUNT 8.3 10^3/uL (4.3-11.0)
[2019-10-31 11:27] LABS: ALBUMIN 3.8 GM/DL (3.2-4.5); POTASSIUM 4.2 MMOL/L (3.6-5.0)
[2019-10-31 11:28] LABS: CALCIUM 9.2 MG/DL (8.5-10.1)
[2019-10-31 11:30] LABS: TOTAL PROTEIN 8.1 GM/DL (6.4-8.2)
[2019-10-31 11:32] LABS: BILIRUBIN,TOTAL 0.6 MG/DL (0.1-1.0)
[2019-10-31 11:33] LABS: CREATININE SERUM 0.94 MG/DL (0.60-1.30)
[2019-10-31 11:39] LABS: BILIRUBIN,URINE NEGATIVE (NEGATIVE); CLARITY,URINE CLEAR; COLOR,URINE YELLOW; GLUCOSE, URINE (UA) NEGATIVE (NEGATIVE); KETONES,URINE NEGATIVE (NEGATIVE); LEUKOCYTE ESTERASE ,URINE NEGATIVE (NEGATIVE); NITRITE,URINE NEGATIVE (NEGATIVE); PH,URINE 7.5 (5-9); PROTEIN,URINE NEGATIVE (NEGATIVE)
[2019-10-31 11:49] LABS: BACTERIA,URINE NEGATIVE /HPF; SQUAMOUS EPITHELIAL CELL,UR RARE /HPF
[2019-10-31] MEDS ORDERED: TEMA7.5C2 PO (12:03)
--- NOTE | 2019-10-31 12:27 | Diagnostic Imaging Report ---
PROCEDURE: CT abdomen and pelvis without contrast. TECHNIQUE: Multiple contiguous axial images were obtained through the abdomen and pelvis without the use of intravenous contrast. Auto Exposure Controls were utilized during the CT exam to meet ALARA standards for radiation dose reduction. INDICATION: Dysuria, lower back pain. COMPARISON: None FINDINGS: Lung bases are clear. The gallbladder, liver, spleen, pancreas, adrenal glands and kidneys are unremarkable. There is mild atherosclerosis of the abdominal aorta without aneurysm. There is no hydronephrosis or renal calculi. Visualized distal ureters and urinary bladder are unremarkable. The uterus is surgically absent. There is mild constipation throughout the colon without overt obstruction. Small bowel normal. Osseous structures are age-appropriate. IMPRESSION: 1. Mild constipation without bowel obstruction. 2. No renal calculi or hydronephrosis. 3. Atherosclerosis of abdominal aorta without evidence of aneurysm. Dictated by: Dictated on workstation # [id number]
[2019-10-31 12:40] VITALS: BP 118/92
== END 2019-10-31 12:44 | disposition home or self-care (01) ==
LOC: EDUNIT# 10:44 → ER 10:46
DX: F03.90 Unspecified dementia, unspecified severity, without behavioral disturbance, psychotic disturbance, mood disturbance, and anxiety (principal); J44.9 Chronic obstructive pulmonary disease, unspecified
CPT/HCPCS: 36415; 51701; 74176; 80053; 81000; 85025

== ENCOUNTER 2020-03-25 07:56 | Emergency (ER) | payer MEDICARE ==
[~2020-03-25] VITALS: Ht 154 cm; Wt 54.4 kg
[~2020-03-25 07:56] MED LIST changes: +TEMA7.5C2 PO
--- NOTE | 2020-03-25 08:06 | ED General ---
General Chief Complaint: Trauma-Non Activation Stated Complaint: FALL Source of Information: Patient, EMS Exam Limitations: Physical Impairments History of Present Illness Date Seen by Provider: Mar 25, 2020 Time Seen by Provider: 08:06 Initial Comments 80-year-old female brought in by EMS. Patient has significant dementia so limited history of present illness. EMS reports that patient was walking in the house and witnessed the stairs. She currently against the wall and then slid down the wall. He reports family thinks may be she might have syncope but is not sure. EMS reports that when they got there she was saying there and not really responding the day irritated her and she stood up and walked out to the angle is without any difficulty. Patient herself denies any type of pain. There are no signs of any physical ailments. Patient is resting comfortably in the cot. A she does have significant dementia, thinks she is 40 years old, ate 2 hot dogs and drank a root beer for breakfast, family confirms her breakfast and states that that all she has been eating for a couple weeks. This is consistent with her known dementia. Allergies and Home Medications Allergies Coded Allergies: No Known Drug Allergies (Unverified , 10/03/19) Home Medications Ipratropium/Albuterol Sulfate 3 Ml Ampul.neb, 3 ML IH Q6H PRN for SHORTNESS OF BREATH Prescribed by: ALBERT GOMES on 10/04/19 1034 Prednisone 10 Mg Tab.ds.pk, 10 MG PO DAILY Take 6 tabs(60mg)daily,decrease by 1 tab(10mg)every other day. Prescribed by: ALBERT GOMES on 10/04/19 1034 Temazepam 7.5 Mg Capsule, 7.5 MG PO HS PRN for INSOMNIA Prescribed by: BASIA CHI on 10/31/19 1204 Patient Home Medication List Home Medication List Reviewed: Yes Review of Systems Review of Systems Constitutional: no symptoms reported EENTM: no symptoms reported Respiratory: no symptoms reported Cardiovascular: no symptoms reported Gastrointestinal: no symptoms reported Genitourinary: no symptoms reported Musculoskeletal: no symptoms reported Skin: no symptoms reported Psychiatric/Neurological: See HPI Past Bqodlms-Obavqz-Aaidbb Hx Past Med/Social Hx: Reviewed Nursing Past Med/Soc Hx Patient Social History Type Used: Cigarettes 2nd Hand Smoke Exposure: No Recent Hopitalizations: No Immunizations Up To Date Tetanus Booster (TDap): Unknown Seasonal Allergies Seasonal Allergies: No Past Medical History Surgeries: Yes Orthopedic Respiratory: Yes COPD Cardiac: Yes Hypertension Neurological: No Genitourinary: No Gastrointestinal: No Musculoskeletal: No Endocrine: Yes (no meds) Diabetes, Non-Insulin dep HEENT: No Cancer: No Psychosocial: No Integumentary: No Blood Disorders: No Physical Exam Vital Signs Vital Signs - First Documented 03/25/20 08:11 Temp 36.2 Pulse 71 Resp 18 B/P (MAP) 126/78 (94) Pulse Ox 97 Capillary Refill : Height, Weight, BMI Height: '" Weight: lbs. oz. kg; 19.00 BMI Method: General Appearance: No Apparent Distress, WD/WN Eyes: Bilateral Eye Normal Inspection, Bilateral Eye PERRL, Bilateral Eye EOMI HEENT: Moist Mucous Membranes Respiratory: Lungs Clear, Normal Breath Sounds, No Accessory Muscle Use Cardiovascular: Regular Rate, Rhythm, No Edema Gastrointestinal: Non Tender, Soft Extremity: Normal Capillary Refill, Normal Inspection Neurologic/Psychiatric: Alert, No Motor/Sensory Deficits, still operator batch or continuous II-XII Norm as Tested, Other (patient pleasant, at baseline with her dementia) Skin: Normal Color, Warm/Dry Progress/Results/Core Measures Suspected Sepsis SIRS Temperature: Pulse: Respiratory Rate: Laboratory Tests 03/25/20 08:30: White Blood Count 6.3 Blood Pressure / Mean: Laboratory Tests 03/25/20 08:30: Creatinine 1.02, Platelet Count 191 Results/Orders Lab Results Laboratory Tests Test 03/25/20 08:30 03/25/20 09:32 Range/Units White Blood Count 6.3 4.3-11.0 10^3/uL Red Blood Count 4.43 3.80-5.11 10^6/uL Hemoglobin 13.9 11.5-16.0 g/dL Hematocrit 42 35-52 % Mean Corpuscular Volume 95 80-99 fL Mean Corpuscular Hemoglobin 31 25-34 pg Mean Corpuscular Hemoglobin Concent 33 32-36 g/dL Red Cell Distribution Width 14.2 10.0-14.5 % Platelet Count 191 130-400 10^3/uL Mean Platelet Volume 10.5 9.0-12.2 fL Immature Granulocyte % (Auto) 0 % Neutrophils (%) (Auto) 56 42-75 % Lymphocytes (%) (Auto) 31 12-44 % Monocytes (%) (Auto) 7 0-12 % Eosinophils (%) (Auto) 5 0-10 % Basophils (%) (Auto) 1 0-10 % Neutrophils # (Auto) 3.5 1.8-7.8 10^3/uL Lymphocytes # (Auto) 2.0 1.0-4.0 10^3/uL Monocytes # (Auto) 0.4 0.0-1.0 10^3/uL Eosinophils # (Auto) 0.3 0.0-0.3 10^3/uL Basophils # (Auto) 0.1 0.0-0.1 10^3/uL Immature Granulocyte # (Auto) 0.0 0.0-0.1 10^3/uL Sodium Level 135 135-145 MMOL/L Potassium Level 4.1 3.6-5.0 MMOL/L Chloride Level 101 98-107 MMOL/L Carbon Dioxide Level 23 21-32 MMOL/L Anion Gap 11 5-14 MMOL/L Blood Urea Nitrogen 22 H 7-18 MG/DL Creatinine 1.02 0.60-1.30 MG/DL Estimat Glomerular Filtration Rate 52 BUN/Creatinine Ratio 22 Glucose Level 102 70-105 MG/DL Calcium Level 8.9 8.5-10.1 MG/DL Urine Color YELLOW Urine Clarity CLEAR Urine pH 7.0 5-9 Urine Specific [place] 1.015 L 1.016-1.022 Urine Protein NEGATIVE NEGATIVE Urine Glucose (UA) NEGATIVE NEGATIVE Urine Ketones NEGATIVE NEGATIVE Urine Nitrite NEGATIVE NEGATIVE Urine Bilirubin NEGATIVE NEGATIVE Urine Urobilinogen 1.0 < = 1.0 MG/DL Urine Leukocyte Esterase TRACE H NEGATIVE Urine RBC (Auto) 2+ H NEGATIVE Urine RBC 10-25 H /HPF Urine WBC RARE /HPF Urine Squamous Epithelial Cells 5-10 /HPF Urine Crystals NONE /LPF Urine Bacteria NEGATIVE /HPF Urine Casts NONE /LPF Urine Mucus NEGATIVE /LPF Urine Culture Indicated NO My Orders Orders - BRADY ZARATE DO Basic Metabolic Panel (03/25/20 08:19) Cbc With Automated Diff (03/25/20 08:19) Ua Culture If Indicated (03/25/20 08:19) Ed Iv/Invasive Line Start (03/25/20 08:26) Ns (Ivpb) (Sodium Chloride 0.9%) (03/25/20 08:26) Medications Given in ED Current Medications Medications Dose Ordered Sig/Valdemar Route Start Time Stop Time Status Last Admin Dose Admin Sodium Chloride 250 ml @ 0 mls/hr Q0M ONCE IV 03/25/20 08:26 03/25/20 08:28 DC 03/25/20 08:41 0 MLS/HR Vital Signs/I&O 03/25/20 08:11 Temp 36.2 Pulse 71 Resp 18 B/P (MAP) 126/78 (94) Pulse Ox 97 Capillary Refill : Progress Note : Time: 10:03 Progress Note Patient with no acute findings on her labs or physical exam. Patient with some likely exertional syncope. Patient stable and will be discharged home she should follow-up with her primary care provider in the next couple days for continued outpatient evaluation Departure Impression Primary Impression: Syncope and collapse Disposition: 01 HOME, SELF-CARE Condition: Stable Departure-Patient Inst. Referrals: Larry REYNA DO (PCP/Family) Primary Care Physician Patient Instructions: Syncope (Fainting) Add. Discharge Instructions: Follow-up with your primary care provider in the next 2-3 days for recheck in 2 days symptoms and further evaluation All discharge instructions reviewed with patient and/or family. Voiced understanding. BRADY ZARATE DO Mar 25, 2020 08:06
[2020-03-25] MEDS ORDERED: NS (IVPB) 250 ML IV ONE (08:26)
--- NOTE | 2020-03-25 08:30 | NUR ---
pt family updated on pt status and current plan of care for pt at this time.
[2020-03-25 08:41] LABS: BASOPHILS # (AUTO) 0.1 10^3/uL (0.0-0.1); BASOPHILS % (AUTO) 1 % (0-10); EOSINOPHILS # (AUTO) 0.3 10^3/uL (0.0-0.3); EOSINOPHILS % (AUTO) 5 % (0-10); HEMATOCRIT 42 % (35-52); HEMOGLOBIN 13.9 g/dL (11.5-16.0); LYMPHOCYTES % (AUTO) 31 % (12-44); MEAN CORPUSCULAR HEMOGLOBIN 31 pg (25-34); MEAN CORPUSCULAR HGB CONC 33 g/dL (32-36); MEAN CORPUSCULAR VOLUME 95 fL (80-99); MEAN PLATELET VOLUME 10.5 fL (9.0-12.2); MONOCYTES # (AUTO) 0.4 10^3/uL (0.0-1.0); MONOCYTES % (AUTO) 7 % (0-12); NEUTROPHILS # (AUTO) 3.5 10^3/uL (1.8-7.8); NEUTROPHILS % (AUTO) 56 % (42-75); PLATELET COUNT 191 10^3/uL (130-400); WHITE BLOOD COUNT 6.3 10^3/uL (4.3-11.0)
[2020-03-25 08:49] LABS: POTASSIUM 4.1 MMOL/L (3.6-5.0)
[2020-03-25 08:50] LABS: CALCIUM 8.9 MG/DL (8.5-10.1)
[2020-03-25 08:54] LABS: CREATININE SERUM 1.02 MG/DL (0.60-1.30)
--- NOTE | 2020-03-25 09:39 | NUR ---
pt family notified of pt status and progress to discharge at this time.
[2020-03-25 09:40] LABS: BILIRUBIN,URINE NEGATIVE (NEGATIVE); CLARITY,URINE CLEAR; COLOR,URINE YELLOW; GLUCOSE, URINE (UA) NEGATIVE (NEGATIVE); KETONES,URINE NEGATIVE (NEGATIVE); LEUKOCYTE ESTERASE ,URINE TRACE (NEGATIVE); NITRITE,URINE NEGATIVE (NEGATIVE); PROTEIN,URINE NEGATIVE (NEGATIVE)
[2020-03-25 09:55] LABS: BACTERIA,URINE NEGATIVE /HPF; WBC,URINE RARE /HPF
[2020-03-25 10:20] VITALS: BP 156/84
== END 2020-03-25 10:20 | disposition home or self-care (01) ==
LOC: EDUNIT# 07:56 → ER 07:58
DX: R55 Syncope and collapse (principal); J44.9 Chronic obstructive pulmonary disease, unspecified; Z79.52 Long term (current) use of systemic steroids
CPT/HCPCS: 36415; 80048; 81000; 85025

== ENCOUNTER 2020-07-07 12:59 | Emergency (ER) | payer MEDICARE ==
[~2020-07-07] VITALS: Ht 152 cm; Wt 49.0 kg
--- NOTE | 2020-07-07 13:22 | ED General ---
General Chief Complaint: Altered Mental Status Stated Complaint: HURTS ALL OVER Source of Information: Patient, EMS Exam Limitations: Physical Impairments History of Present Illness Date Seen by Provider: Jul 07, 2020 Time Seen by Provider: 13:20 Initial Comments Patient is an 80-year-old female who presents to the emergency room by EMS today with a chief complaint of urinary tract symptoms, increased frequency as reported by the patient's daughter as well as an episode of "catatonia" this afternoon where the patient became unresponsive for a brief period of time. Patient history is obtained primarily from the daughter as the patient has a history of dementia and is only oriented to self. Daughter reports that since the patient has had a rash that has been coming and going that is diffuse. The daughter believes that the rash may have been triggered by the patient eating some chocolate pie at [facility] and she is allergic to it. There is no report of recent fevers, chills, shortness of breath, productive cough. She has not been seen for this rash which appears petechial and purpuric in nature. The patient wears a pad as she has some urge incontinence but most of the time is able to get to the bathroom under her own power. No recent falls or traumas are reported. The patient has a history of chronic kidney disease, t ype 2 diabetes, hypertension. The patient is unable to provide review of systems secondary to her dementia. Timing/Duration: 12 Hours Allergies and Home Medications Allergies Coded Allergies: No Known Drug Allergies (Unverified , 10/03/19) Home Medications Cephalexin 500 Mg Capsule, 500 MG PO TID Prescribed by: ORVILLE SIDDIQI on 07/07/20 1546 Ipratropium/Albuterol Sulfate 3 Ml Ampul.neb, 3 ML IH Q6H PRN for SHORTNESS OF BREATH Prescribed by: ALBERT GOMES on 10/04/19 1034 Prednisone 10 Mg Tab.ds.pk, 10 MG PO DAILY Take 6 tabs(60mg)daily,decrease by 1 tab(10mg)every other day. Prescribed by: ALBERT GOMES on 10/04/19 1034 Temazepam 7.5 Mg Capsule, 7.5 MG PO HS PRN for INSOMNIA Prescribed by: BASIA CHI on 10/31/19 1204 Patient Home Medication List Home Medication List Reviewed: Yes Review of Systems Review of Systems Constitutional: see HPI All Other Systems Reviewed Negative Unless Noted: Yes Past Hzdpyrk-Lhcdpe-Neinjl Hx Patient Social History Type Used: Cigarettes 2nd Hand Smoke Exposure: No Recent Hopitalizations: No Immunizations Up To Date Tetanus Booster (TDap): Unknown Seasonal Allergies Seasonal Allergies: No Past Medical History Surgeries: Yes Orthopedic Respiratory: Yes COPD Cardiac: Yes Hypertension Neurological: No Genitourinary: No Gastrointestinal: No Musculoskeletal: No Endocrine: Yes (no meds) Diabetes, Non-Insulin dep HEENT: No Cancer: No Psychosocial: No Integumentary: No Blood Disorders: No Physical Exam Vital Signs Vital Signs - First Documented 07/07/20 13:11 Temp 35.3 Pulse 68 Resp 20 B/P (MAP) 88/58 (68) Pulse Ox 100 O2 Delivery Room Air Capillary Refill : Height, Weight, BMI Height: '" Weight: lbs. oz. kg; 22.00 BMI Method: General Appearance: WD/WN, Anxious, Mild Distress Eyes: Bilateral Eye Normal Inspection, Bilateral Eye PERRL, Bilateral Eye EOMI HEENT: PERRL/EOMI Neck: Full Range of Motion, Normal Inspection Respiratory: Lungs Clear, Normal Breath Sounds, No Accessory Muscle Use, No Respiratory Distress Cardiovascular: Regular Rate, Rhythm Gastrointestinal: Soft, Tenderness (Diffuse abdominal tenderness with palpation, the patient asks me to not palpate her abdomen secondary to pain) Extremity: Normal Capillary Refill, No Calf Tenderness Neurologic/Psychiatric: Alert, No Motor/Sensory Deficits, Other (Patient is oriented to self only) Skin: Warm/Dry, Pallor, Petechia (Diffuse petechial rash to the bilateral upper extremities and petechial and purpuric rash noted to the bilateral lower extremities diffusely) Progress/Results/Core Measures Suspected Sepsis SIRS Temperature: Pulse: Respiratory Rate: Laboratory Tests 07/07/20 13:20: White Blood Count 6.4 Blood Pressure / Mean: Laboratory Tests 07/07/20 13:20: Creatinine 1.55H, INR Comment 1.0, Platelet Count 105L, Total Bilirubin 0.7 Results/Orders Lab Results Laboratory Tests Test 07/07/20 13:20 Range/Units White Blood Count 6.4 4.3-11.0 10^3/uL Red Blood Count 4.00 3.80-5.11 10^6/uL Hemoglobin 12.5 11.5-16.0 g/dL Hematocrit 36 35-52 % Mean Corpuscular Volume 91 80-99 fL Mean Corpuscular Hemoglobin 31 25-34 pg Mean Corpuscular Hemoglobin Concent 35 32-36 g/dL Red Cell Distribution Width 12.6 10.0-14.5 % Platelet Count 105 L 130-400 10^3/uL Mean Platelet Volume 12.8 H 9.0-12.2 fL Immature Granulocyte % (Auto) 0 % Neutrophils (%) (Auto) 71 42-75 % Lymphocytes (%) (Auto) 25 12-44 % Monocytes (%) (Auto) 3 0-12 % Eosinophils (%) (Auto) 1 0-10 % Basophils (%) (Auto) 0 0-10 % Neutrophils # (Auto) 4.6 1.8-7.8 10^3/uL Lymphocytes # (Auto) 1.6 1.0-4.0 10^3/uL Monocytes # (Auto) 0.2 0.0-1.0 10^3/uL Eosinophils # (Auto) 0.1 0.0-0.3 10^3/uL Basophils # (Auto) 0.0 0.0-0.1 10^3/uL Immature Granulocyte # (Auto) 0.0 0.0-0.1 10^3/uL Prothrombin Time 13.8 12.2-14.7 SEC INR Comment 1.0 0.8-1.4 Activated Partial Thromboplast Time 32 24-35 SEC Urine Color YELLOW Urine Clarity CLEAR Urine pH 7.5 5-9 Urine Specific Truman 1.020 1.016-1.022 Urine Protein 3+ H NEGATIVE Urine Glucose (UA) NEGATIVE NEGATIVE Urine Ketones NEGATIVE NEGATIVE Urine Nitrite NEGATIVE NEGATIVE Urine Bilirubin NEGATIVE NEGATIVE Urine Urobilinogen 1.0 < = 1.0 MG/DL Urine Leukocyte Esterase 1+ H NEGATIVE Urine RBC (Auto) 3+ H NEGATIVE Urine RBC 25-50 H /HPF Urine WBC 25-50 H /HPF Urine Crystals NONE /LPF Urine Bacteria LARGE H /HPF Urine Casts NONE /LPF Urine Mucus NEGATIVE /LPF Urine Culture Indicated YES Sodium Level 137 135-145 MMOL/L Potassium Level 3.3 L 3.6-5.0 MMOL/L Chloride Level 91 L 98-107 MMOL/L Carbon Dioxide Level 28 21-32 MMOL/L Anion Gap 18 H 5-14 MMOL/L Blood Urea Nitrogen 20 H 7-18 MG/DL Creatinine 1.55 H 0.60-1.30 MG/DL Estimat Glomerular Filtration Rate 32 BUN/Creatinine Ratio 13 Glucose Level 94 70-105 MG/DL Calcium Level 8.1 L 8.5-10.1 MG/DL Corrected Calcium 9.1 8.5-10.1 MG/DL Total Bilirubin 0.7 0.1-1.0 MG/DL Aspartate Amino Transf (AST/SGOT) 51 H 5-34 U/L Alanine Aminotransferase (ALT/SGPT) 19 0-55 U/L Alkaline Phosphatase 99 40-136 U/L C-Reactive Protein High Sensitivity 3.63 H 0.00-0.50 MG/DL Total Protein 7.0 6.4-8.2 GM/DL Albumin 2.7 L 3.2-4.5 GM/DL My Orders Orders - ORVILLE SIDDIQI MD Cbc With Automated Diff (07/07/20 13:36) Comprehensive Metabolic Panel (07/07/20 13:36) Ed Iv/Invasive Line Start (07/07/20 13:36) Ua Culture If Indicated (07/07/20 13:36) Type And Screen (07/07/20 13:37) Protime With Inr (07/07/20 13:37) Partial Thromboplastin Time (07/07/20 13:37) Urine Culture (07/07/20 13:20) Ceftriaxone For Iv Use (Rocephin For I (07/07/20 14:30) Ns Iv 1000 Ml (Sodium Chloride 0.9%) (07/07/20 14:30) Ct Head Wo (07/07/20 14:29) Hs C Reactive Protein (07/07/20 14:37) Medications Given in ED Current Medications Medications Dose Ordered Sig/Valdemar Route Start Time Stop Time Status Last Admin Dose Admin Ceftriaxone Sodium 1000 mg/ Sterile Water 10 ml @ 200 mls/hr ONCE ONCE IV 07/07/20 14:30 07/07/20 14:32 DC 07/07/20 14:35 200 MLS/HR Vital Signs/I&O 07/07/20 07/07/20 13:11 15:45 Temp 35.3 37.0 Pulse 68 60 Resp 20 16 B/P (MAP) 88/58 (68) 117/86 Pulse Ox 100 98 O2 Delivery Room Air Room Air Capillary Refill : Progress Note : Time: 15:38 Progress Note Patient has evidence of some mild thrombocytopenia with a platelet count of 106. She has definite evidence of urinary tract infection. CBC is otherwise unremarkable. Electrolytes are basically within normal limits except for a slight decrease in her serum potassium at 3.3. Renal function has mildly increased with a serum creatinine of 1.55 and GFR of 32. This is a significant increase from her normal renal functions from September 2019. 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 I did discuss the case with Dr. Gomes on for hospitalist service. At this time he did not believe that there was any acute indication for admission to the hospital. He asked me to speak to hematology regarding her thrombocytopenia. I did speak with who recommended maybe a course of oral steroids starting with 60 of prednisone. In the setting of this patient having hypertension, type 2 diabetes and being a small she is I am not sure that I am comfortable starting her on the prednisone at this time. I talked to her daughter Savanna and she tells me that Ms. Mario has an appointment with Dr. Bangura on July 27. She would prefer to defer starting her on steroids at this point and just go ahead and treat her urinary tract infection. I agree with this plan and I think that is an appropriate course of action. Patient received 1 g of Rocephin IV here in the emergency department. She will be started on oral Keflex 500 mg 3 times a day for the next week. I advised her daughter to push oral fluids. She verbalizes understanding. She is comfortable with this plan of care. All questions are sought and answered and Ms. Mario is stable for discharge. Diagnostic Imaging Diagonstic Imaging: CT Plain Films/CT/US/NM/MRI: head Comments [facility], [place] NAME: [facility] REC#: [id number] PT STATUS: REG ER : 1940 PHYSICIAN: ORVILLE SIDDIQI MD ADMIT DATE: 07/07/20/ER Draft Date of Exam:07/07/20 CT HEAD WO PROCEDURE: CT head without contrast. TECHNIQUE: Multiple contiguous axial images were obtained through the brain without the use of intravenous contrast. Auto Exposure Controls were utilized during the CT exam to meet ALARA standards for radiation dose reduction. INDICATION: Unresponsive. COMPARISON: No prior studies are available for comparison. FINDINGS: Ventricles and sulci are prominent, consistent with the patient's age. No sulcal effacement or midline shift is identified. No acute intra-axial or extra-axial hemorrhage is detected. Cisterns are patent. Visualized paranasal sinuses are clear. IMPRESSION: Chronic changes. No acute intracranial process is detected. Dictated on workstation # [id number] Dict: 07/07/20 1458 Trans: 07/07/20 1504 [id number] Interpreted by: NATHANIEL GREGORY MD Electronically signed by: Departure Impression Primary Impression: Purpura Additional Impressions: Urinary tract infection Qualified Codes: N30.01 - Acute cystitis with hematuria Thrombocytopenia Qentj-fw-[id number] kidney injury Qualified Codes: N17.9 - Acute kidney failure, unspecified; N18.9 - Chronic kidney disease, unspecified Disposition: HOME, SELF-CARE Condition: Stable Departure-Patient Inst. Decision time for Depature: 15:43 Referrals: MARIN BANGURA MD, C T DO (PCP) Primary Care Physician Patient Instructions: Urinary Tract Infection, Adult (DC) Add. Discharge Instructions: Encourage lots of fluids so that she can stay well-hydrated. I have prescribed an antibiotic, Keflex, this is to be given 3 times a day for the next 7 days. Return to the emergency room for any worsening conditions, new emergent complaints. Be sure and keep your follow-up appointment with Dr. Bangura on July 27. Scripts Cephalexin (Cephalexin) 500 Mg Capsule 500 MG PO TID for 7 Days, #21 CAP Prov: ORVILLE SIDDIQI MD 07/07/20 Copy Copies To 1: MARIN BANGURA MD, KATHRYN M MD Jul 07, 2020 13:22
[2020-07-07 13:49] LABS: ALBUMIN 2.7 GM/DL (3.2-4.5)
[2020-07-07 13:50] LABS: BASOPHILS % (AUTO) 0 % (0-10); EOSINOPHILS # (AUTO) 0.1 10^3/uL (0.0-0.3); EOSINOPHILS % (AUTO) 1 % (0-10); HEMATOCRIT 36 % (35-52); HEMOGLOBIN 12.5 g/dL (11.5-16.0); LYMPHOCYTES # (AUTO) 1.6 10^3/uL (1.0-4.0); LYMPHOCYTES % (AUTO) 25 % (12-44); MEAN CORPUSCULAR HEMOGLOBIN 31 pg (25-34); MEAN CORPUSCULAR HGB CONC 35 g/dL (32-36); MEAN CORPUSCULAR VOLUME 91 fL (80-99); MEAN PLATELET VOLUME 12.8 fL (9.0-12.2); MONOCYTES # (AUTO) 0.2 10^3/uL (0.0-1.0); MONOCYTES % (AUTO) 3 % (0-12); NEUTROPHILS # (AUTO) 4.6 10^3/uL (1.8-7.8); NEUTROPHILS % (AUTO) 71 % (42-75); PLATELET COUNT 105 10^3/uL (130-400); POTASSIUM 3.3 MMOL/L (3.6-5.0); WHITE BLOOD COUNT 6.4 10^3/uL (4.3-11.0)
[2020-07-07 13:51] LABS: CALCIUM 8.1 MG/DL (8.5-10.1)
[2020-07-07 13:54] LABS: BILIRUBIN,TOTAL 0.7 MG/DL (0.1-1.0)
[2020-07-07 13:55] LABS: BILIRUBIN,URINE NEGATIVE (NEGATIVE); CLARITY,URINE CLEAR; COLOR,URINE YELLOW; GLUCOSE, URINE (UA) NEGATIVE (NEGATIVE); KETONES,URINE NEGATIVE (NEGATIVE); LEUKOCYTE ESTERASE ,URINE 1+ (NEGATIVE); NITRITE,URINE NEGATIVE (NEGATIVE); PH,URINE 7.5 (5-9); PROTEIN,URINE 3+ (NEGATIVE)
[2020-07-07 13:56] LABS: CREATININE SERUM 1.55 MG/DL (0.60-1.30); PROTHROMBIN TIME PATIENT 13.8 SEC (12.2-14.7)
[2020-07-07 14:06] LABS: BACTERIA,URINE LARGE /HPF; RBC,URINE 25-50 /HPF; WBC,URINE 25-50 /HPF
[2020-07-07] MEDS ORDERED: cefTRIAXone FOR IV USE 1,000 MG in WATER (STERILE) FOR INJECTION 10 ML IV ONE (14:30)
[2020-07-07] MEDS ORDERED: NS IV 1000 ML 1,000 ML IV SCH (14:30)
--- NOTE | 2020-07-07 15:06 | Diagnostic Imaging Report ---
PROCEDURE: CT head without contrast. TECHNIQUE: Multiple contiguous axial images were obtained through the brain without the use of intravenous contrast. Auto Exposure Controls were utilized during the CT exam to meet ALARA standards for radiation dose reduction. INDICATION: Unresponsive. COMPARISON: No prior studies are available for comparison. FINDINGS: Ventricles and sulci are prominent, consistent with the patient's age. No sulcal effacement or midline shift is identified. No acute intra-axial or extra-axial hemorrhage is detected. Cisterns are patent. Visualized paranasal sinuses are clear. IMPRESSION: Chronic changes. No acute intracranial process is detected. Dictated by: Dictated on workstation # [id number]
[2020-07-07 15:45] VITALS: BP 117/86
[2020-07-07] MEDS ORDERED: CEPH500C PO (15:46)
== END 2020-07-07 15:45 | disposition home or self-care (01) ==
LOC: EDUNIT# 12:59 → ER 13:08
DX: D69.2 Other nonthrombocytopenic purpura (principal); N39.0 Urinary tract infection, site not specified; D69.6 Thrombocytopenia, unspecified; N17.9 Acute kidney failure, unspecified; F41.9 Anxiety disorder, unspecified; J44.9 Chronic obstructive pulmonary disease, unspecified; Z79.52 Long term (current) use of systemic steroids
CPT/HCPCS: 36415; 51702; 70450; 80053; 81000; 85025; 85610; 85730; 86141; 86850; 86900; 86901; 87088